=== PATIENT | female | born 1980 | race African-American/Black ===

== ENCOUNTER 2017-02-06 18:11 | Emergency (ER) | payer MEDICAID ==
[~2017-02-06] VITALS: Ht 160 cm; Wt 77.2 kg
[2017-02-06 20:08] VITALS: BP 138/99
== END 2017-02-06 20:09 | disposition home or self-care (01) ==
LOC: ED 18:11
DX: R10.33 Periumbilical pain (principal); R11.0 Nausea; I10 Essential (primary) hypertension; Z79.899 Other long term (current) drug therapy; Z88.2 Allergy status to sulfonamides
CPT/HCPCS: J1885; Q0162

== ENCOUNTER 2017-09-16 20:30 | Inpatient (IN) | payer OTHER ==
[~2017-09-16] VITALS: Ht 160 cm; Wt 77.1 kg
[2017-09-16 20:34] VITALS: Ht 160 cm; Wt 77.1 kg
--- NOTE | 2017-09-16 20:44 | NUR ---
EKG COMPLETED AND REVIWED BY MD. BOOTH TO ROOM 8 FOR MSE.
--- NOTE | 2017-09-16 20:52 | NUR ---
PT RESTING IN BED, AAOX4 WITH C/O LT CHEST PRESSURE LIKE PAIN 05/06 SINCE 7PM. PT DENIES N/V/D OR DIZZINESS.
--- NOTE | 2017-09-16 21:30 | NUR ---
PT RESTING IN BED WITH NO SIGNS OF DISTRESS AT THIS TIME.
[2017-09-16 22:09] LABS: PLATELET COUNT 263 x10^3mcL (130-400)
--- NOTE | 2017-09-16 22:25 | NUR ---
PT GIVEN SL NITRO AND IV ATIVAN FOR CHEST PRESSURE AND ANXIETY PER DR EILAS.
[2017-09-16 22:28] LABS: CALCIUM 9.3 mg/dL (8.5-10.1); CARBON DIOXIDE 27.7 mmol/L (21-32); CHLORIDE SERUM 103 mmol/L (98-107); CREATININE SERUM 0.9 mg/dL (0.6-1.0); GFR1 > 60 mL/min; GLUCOSE SERUM 109 mg/dL (74-106); POTASSIUM SERUM 3.4 mmol/L (3.5-5.1); SODIUM SERUM 141 mmol/L (136-145)
[2017-09-16 22:33] LABS: ALBUMIN 4.3 g/dL (3.4-5.0); ALKALINE PHOSPHATASE 71 U/L (46-116); ALT/SGPT 18 U/L (14-59); AST/SGOT 17 U/L (15-37); BILIRUBIN TOTAL 0.25 mg/dL (0.20-1.00); TOTAL PROTEIN, SERUM 8.5 g/dL (6.4-8.2)
--- NOTE | 2017-09-16 22:50 | NUR ---
PT STATED SHE IS FEELING BETTER FROM MEDICATION GIVEN AND THAT THE CHEST PRESSURE HAS RESOLVED.
[2017-09-16] MEDS ORDERED: CAMILA0.35 MG PO (22:55)
[2017-09-16] MEDS ORDERED: LISINOPRIL10 MG PO (22:55)
[2017-09-16] MEDS ORDERED: TOPROL XL25 MG PO (22:55)
--- NOTE | 2017-09-16 23:05 | NUR ---
REPORT GIVEN TO POLO GARCIA.
[2017-09-16 23:14] LABS: BAND NEUTROPHIL 3 % (0-10); MONOCYTE 9 % (0-7); SEGMENTED NEUTROPHILS 45 % (37-75)
[2017-09-16 23:16] LABS: rbc morphology (normal/abnorm) NORMAL (NORMAL)
[2017-09-16 23:17] LABS: PLATELET MORPHOLOGY PLATELETS NORMAL
--- NOTE | 2017-09-16 23:36 | NUR ---
dr. neff in pt's room explaining plan of care
[2017-09-16 23:39] VITALS: BP 142/87
--- NOTE | 2017-09-16 23:43 | NUR ---
RECEIVED PT FROM ED VIA JOSHUA. ORIENTED PT TO ROOM AND SURROUNDINGS .IV NOTED TO LAC PATENT AND INTACT. TELE 8 PLACED ON PT READING NSR. INSTRUCTED PT ON THE USE OF CALL LIGHT FOR ASSISTANCE. ENDORSED PT TO PRIMARY NURSE POLO
--- NOTE | 2017-09-17 00:38 | NUR ---
stated comfortable at this time. breathing even and unlabored on room air, denies having chest pain or shortness of breath. ivf of ns infusing at 100ml/hr. accompanying male quality assurance practice manager in room.
[2017-09-17 00:44] LABS: UA SPECIFIC GRAVITY <=1.005 (1.005-1.035); microscopic required? YES; urine erythrocyte 1+ (NEGATIVE)
[2017-09-17 00:53] LABS: AMPHETAMINE QUAL UR NONE DETECTED (NEG <=1000)
[2017-09-17 01:14] LABS: MAGNESIUM 2.2 mg/dL (1.8-2.4); PHOSPHOROUS 3.6 mg/dL (2.5-4.9)
[2017-09-17 01:15] LABS: CHOLESTEROL/HDL RATIO 1.8
[2017-09-17 01:24] LABS: FREE T4 1.12 ng/dL (0.76-1.46); FREE THYROXINE INDEX 3.5 ug/dL (1.4-4.5); T4(THYROXINE) 9.9 ug/dL (4.7-13.3)
--- NOTE | 2017-09-17 02:49 | NUR ---
noted new order, ivf to 60ml/hr.
--- NOTE | 2017-09-17 02:54 | NUR ---
informed dr. neff toprol not administered due to pt stated probably took it last night already and bp low.
[2017-09-17 03:33] LABS: T3 TOTAL 1.32 ng/mL
[2017-09-17 05:35] VITALS: BP 110/67
--- NOTE | 2017-09-17 06:05 | NUR ---
explained purpose of ativan and possible side effects including drowsiness. verbalized understanding. ativan 1mg po was administered. stated feeling better, stated comfortable at this time. ivf of ns at 60ml/hr.
[2017-09-17 06:51] LABS: BASOPHIL % 0.5 % (0-2); PLATELET COUNT 242 x10^3mcL (130-400); RED CELL DISTRIBUTION WIDTH 14.1 % (11.5-14.5)
[2017-09-17 06:54] LABS: CALCIUM 8.6 mg/dL (8.5-10.1); CARBON DIOXIDE 27.3 mmol/L (21-32); CHLORIDE SERUM 105 mmol/L (98-107); CREATININE SERUM 0.9 mg/dL (0.6-1.0); GFR1 > 60 mL/min; GLUCOSE SERUM 91 mg/dL (74-106); MAGNESIUM 2.2 mg/dL (1.8-2.4); PHOSPHOROUS 4.2 mg/dL (2.5-4.9); POTASSIUM SERUM 3.9 mmol/L (3.5-5.1); SODIUM SERUM 141 mmol/L (136-145)
--- NOTE | 2017-09-17 07:10 | NUR ---
awake and alert, in no acute distress. stated comfortable at this time. slept through most of shift post admission to unit. endorsed to nurse parkinson
--- NOTE | 2017-09-17 07:20 | NUR ---
AAO X4.C/O MILD DISCOMFORT AT 3/10 PAIN SCALE.LUNGS CLEAR.IVF NS GOING AT 60 ML/HR INFUSING WELL.CALL LIGHT WITHIN REACH.INSTRUCTED TO CALL FOR ANY PAIN/DISCOMFORT.WILL CONTINUE TO MONITOR PT.
[2017-09-17 09:36] VITALS: BP 112/70
[2017-09-17 13:18] VITALS: BP 119/80
[2017-09-17 15:39] VITALS: BP 119/80
--- NOTE | 2017-09-17 16:38 | NUR ---
PT D/C TO HOME IV AND MONITOR D/C'D.D/C INSTRUCTION GIVEN PT VERBALIZES UNDERSTANDING.WENT DOWN VIA WHEELCHAIR ACCOMPANIED BY AND LIFE INSURANCE SALESPERSON.
== END 2017-09-17 16:44 | disposition home or self-care (01) | DRG 203 ==
LOC: ED 20:30 → DU 22:46 → MU 23:10 → DU 23:19 → MU 09-17 14:42
PROVIDERS: Emergency Medicine; ADMIT Family Medicine
DX: M94.0 Chondrocostal junction syndrome [Tietze] (principal); I10 Essential (primary) hypertension; E87.6 Hypokalemia; F10.10 Alcohol abuse, uncomplicated; E02 Subclinical iodine-deficiency hypothyroidism; Z68.32 Body mass index [BMI] 32.0-32.9, adult
CPT/HCPCS: 83880; 84439; 85378; G0480; J2060; J7030; Q0092

== ENCOUNTER 2019-08-14 17:21 | Emergency (ER) | payer OTHER ==
[~2019-08-14] VITALS: Ht 160 cm; Wt 83.9 kg
[~2019-08-14 17:21] MED LIST: CAMILA0.35 MG PO; LISINOPRIL10 MG PO; TOPROL XL25 MG PO
[2019-08-14 17:38] VITALS: Ht 160 cm; Wt 83.9 kg
[2019-08-14 21:10] VITALS: BP 127/70
== END 2019-08-14 21:10 | disposition home or self-care (01) ==
LOC: ED 17:21
DX: S30.0XXA Contusion of lower back and pelvis, initial encounter (principal); I10 Essential (primary) hypertension; Z88.2 Allergy status to sulfonamides; W01.0XXA Fall on same level from slipping, tripping and stumbling without subsequent striking against object, initial encounter; Y93.89 Activity, other specified; Y92.89 Other specified places as the place of occurrence of the external cause; Y99.8 Other external cause status